=== PATIENT | female | born 1970 | race Two or more races ===

== ENCOUNTER 2018-06-11 06:51 | Day surgery (SDC) | payer BC ==
[2018-06-08 12:06] LABS: ALBUMIN 4.2 g/dL (3.4-5.0); ALKALINE PHOSPHATASE 64 U/L (46-116); ALT/SGPT 22 U/L (14-59); AST/SGOT 20 U/L (15-37); BILIRUBIN TOTAL 0.3 mg/dL (0.20-1.00); CALCIUM 9.1 mg/dL (8.5-10.1); CARBON DIOXIDE 27.2 mmol/L (21-32); CHLORIDE SERUM 103 mmol/L (98-107); CREATININE SERUM 0.9 mg/dL (0.6-1.0); GFR1 > 60 mL/min; GLUCOSE SERUM 99 mg/dL (74-106); POTASSIUM SERUM 3.8 mmol/L (3.5-5.1); SODIUM SERUM 141 mmol/L (136-145)
[2018-06-08 12:10] LABS: TOTAL PROTEIN, SERUM 8.7 g/dL (6.4-8.2)
[2018-06-08 13:02] LABS: BASOPHIL % 0.3 % (0-2); PLATELET COUNT 352 x10^3mcL (130-400); RED CELL DISTRIBUTION WIDTH 12.9 % (11.5-14.5)
[~2018-06-11] VITALS: Ht 152.4 cm; Wt 60.3 kg
[2018-06-11 07:02] VITALS: BP 109/69
[2018-06-11 15:31] VITALS: BP 108/66
== END 2018-06-11 15:15 | disposition home or self-care (01) ==
LOC: DS 06:51 → OR 10:30 → DS 15:15
PROVIDERS: Surgery
PROC: 0HBT0ZZ Excision of Right Breast, Open Approach (ICD-10-PCS; principal; 2018-06-11 10:30)
DX: D24.1 Benign neoplasm of right breast (principal); R73.03 Prediabetes
CPT/HCPCS: J0690; J2001; J2175; J2250; J2405; J2704; J3010; J3490; J7120